=== PATIENT | female | born 1995 | race Two or more races ===

== ENCOUNTER → 2022-07-02 | Outpatient (REF) | payer OTHER ==
[2022-07-02 20:39] LABS: GC DNA AMPLIFICATION NEGATIVE (NEGATIVE)
== END ==
LOC: M LAB REF 18:52
PROVIDERS: ATTEND Physician Assistant
DX: R10.30 Lower abdominal pain, unspecified (principal)

== ENCOUNTER → 2022-07-25 | Outpatient (CLI) | payer OTHER, SELFPAY | LOC: M RAD 13:25 | PROVIDERS: ATTEND Physician Assistant | DX: R10.30 Lower abdominal pain, unspecified (principal); R93.89 Abnormal findings on diagnostic imaging of other specified body structures ==

== ENCOUNTER 2024-04-12 06:13 | Observation (INO) | payer OTHER ==
[~2024-04-12] VITALS: Ht 170.2 cm; Wt 82.6 kg
[2024-04-12] VITALS (8 sets, daily range): BP systolic 93–104; BP diastolic 45–59; TEMP 98.1–99; O2SAT 98–100
[2024-04-12] MEDS ORDERED: NS (Normal Saline) 0.9% 1,000 ML IV SCH (06:20)
[2024-04-12] MEDS: ACETAMINOPHEN 500 MG TAB PO ONE (06:49)
[2024-04-12] MEDS: GABAPENTIN 300 MG CAP PO ONE (06:49)
[2024-04-12] MEDS: SCOPOLAMINE 1MG TRANSDERMAL PATCH TOP ONE (06:51)
[2024-04-12] MEDS: ceFAZolin SOD 2 GM in IV 1 EA IV ONE (07:30)
[2024-04-12] MEDS ORDERED: propofoL 200 MG/20 ML VIAL As Ordered ONE (07:58)
[2024-04-12] MEDS ORDERED: KETOROLAC 60MG 2ML VIAL As Ordered ONE (07:58)
[2024-04-12] MEDS ORDERED: ROCURONIUM BROMIDE 50MG/5ML VIAL As Ordered ONE (07:58)
[2024-04-12] MEDS ORDERED: LIDOCAINE 2% 100MG/5ML SDV (FOR ANES.) As Ordered ONE (07:58)
[2024-04-12] MEDS ORDERED: MIDAZOLAM INJ 2MG/2ML VIAL As Ordered ONE (07:58)
[2024-04-12] MEDS ORDERED: fentaNYL 100 MCG/2 ML INJECTION As Ordered ONE (07:58)
[2024-04-12] MEDS ORDERED: dexmedeTOMIDine (4MCG/ML)200MCG/50ML BTL (PRECEDEX) As Ordered ONE (07:58)
[2024-04-12] MEDS ORDERED: METOCLOPRAMIDE INJ 10MG/2ML VIAL As Ordered ONE (07:58)
[2024-04-12] MEDS ORDERED: SUGAMMADEX SODIUM 500 MG/5 ML VIAL (BRIDION) As Ordered ONE (07:58)
[2024-04-12] MEDS ORDERED: ONDANSETRON 4MG 2ML VIAL As Ordered ONE (07:58)
[2024-04-12] MEDS ORDERED: DESFLURANE 240 ML INHALANT As Ordered ONE (08:12)
[2024-04-12] MEDS ORDERED: SEVOFLURANE INHAL SOLN 250 ML BTL As Ordered ONE (08:14)
[2024-04-12] MEDS: VASOPRESSIN INJ 20UNITS/ML 1ML VIAL As Ordered ONE (09:12)
[2024-04-12] MEDS: SILVER NITRATE APPLICATOR (1 = QTY 10) As Ordered ONE (09:21)
[2024-04-12] MEDS: BACITRACIN OINTMENT 30GM TUBE As Ordered ONE (09:25)
[2024-04-12] MEDS: LR 1,000 ML IV SCH (09:45)
[2024-04-12] MEDS ORDERED: ONDANSETRON 4MG 2ML VIAL IV PRN ×2 (09:45→10:30)
[2024-04-12] MEDS ORDERED: oxyCODONE 5MG TAB PO PRN (09:45)
[2024-04-12] MEDS ORDERED: METOCLOPRAMIDE INJ 10MG/2ML VIAL IV PRN (09:45)
[2024-04-12] MEDS: NS (Normal Saline) 0.9% 1,000 ML IV SCH (10:30)
[2024-04-12] MEDS ORDERED: fentaNYL 100 MCG/2 ML INJECTION IV PRN (10:30)
[2024-04-12] MEDS ORDERED: HYDROMORPHONE HCL 0.5 MG/ 0.5 ML SYRINGE IV PRN (10:30)
[2024-04-12] MEDS: oxyCODONE 5MG TAB PO PRN (10:35)
[2024-04-12] MEDS: ACETAMINOPHEN 500 MG TAB PO SCH (14:01)
[2024-04-12] MEDS ORDERED: THERTAB52 PO (14:36)
[2024-04-12] MEDS ORDERED: HOME MED LIST COMPLETE! XX SCH (14:40)
[2024-04-12] MEDS: IBUPROFEN 800 MG TAB PO SCH (17:14)
[2024-04-12] MEDS: GABAPENTIN 300 MG CAP PO SCH (21:27)
[2024-04-12] MEDS: DOCUSATE SODIUM 100MG CAPSULE PO SCH (21:27)
[2024-04-13] VITALS: BP 92/50; TEMP 98.4; O2SAT 98
[2024-04-13 05:00] VITALS: BP 102/56; TEMP 97.9; O2SAT 98
[2024-04-13] MEDS: MIRALAX *UNIT DOSE* 17GM PACKET PO SCH (08:49)
[2024-04-13 09:00] VITALS: BP 99/57; TEMP 97.6; O2SAT 99
[2024-04-13] MEDS ORDERED: IBUPROFEN 800 MG TAB PO SCH (16:00)
== END 2024-04-13 12:02 | disposition home or self-care (01) ==
LOC: INTOOBSV 06:13 → M OR 06:13 → EDSTATUS 07:30 → M PED 12:45
PROVIDERS: ADMIT Student in an Organized Health Care Education/Training Program; ATTEND Student in an Organized Health Care Education/Training Program
DX: D25.9 Leiomyoma of uterus, unspecified (principal)
CPT/HCPCS: 36415; 58140; 81025; 86850; 86900; 86901; 88305; A6024; C1765; J0665; J0690; J1100; J1885; J2250; J2405; J2598; J2765; J3010